=== PATIENT | female | born 1945 | race Caucasian/White ===

== ENCOUNTER → 2017-06-27 | Outpatient (CLI) | payer MEDICARE, OTHER | LOC: MC.RAD 13:20 | DX: Z12.31 Encounter for screening mammogram for malignant neoplasm of breast (principal) ==

== ENCOUNTER → 2018-10-17 | Outpatient (CLI) | payer MEDICARE, OTHER | LOC: MC.RAD 10:15 | DX: Z12.31 Encounter for screening mammogram for malignant neoplasm of breast (principal) ==

== ENCOUNTER → 2019-02-23 | Outpatient (CLI) | payer MEDICARE, OTHER | LOC: COL.RAD 11:10 | DX: C83.11 Mantle cell lymphoma, lymph nodes of head, face, and neck (principal); R06.02 Shortness of breath | CPT/HCPCS: Q9967 ==

== ENCOUNTER 2020-03-15 08:38 | Outpatient (CLI) | payer MEDICARE, OTHER ==
[~2020-03-15] VITALS: Ht 160 cm; Wt 56.0 kg
[2020-03-15] VITALS (18 sets, daily range): BP systolic 144–177; BP diastolic 60–90; PULSE 58–80; TEMP 98.3
[~2020-03-15 08:38] MED LIST: CALCIUM 600 MG1 EAC2 PO; HCTZ12.5TAB PO; INDERAL 10MG10 MG PO; MULTIPLE VITAMI1 TA5 PO; VITAMIN B12 1541 TAB PO; ZESTRIL 5MG5 MG PO
--- NOTE | 2020-03-15 09:13 | NUR ---
HOUSE NOTIFIED OF NEED FOR BED POSSIBILITY
--- NOTE | 2020-03-15 09:50 | NUR ---
PT STARTED COUGHING UP BLOOD. 02 @ L REMAINS. RESOLVING AFTER 5 MIN. PT TAKEN TO EU9. CXR 1 HOUR
--- NOTE | 2020-03-15 12:22 | NUR ---
Spoke with Radha Calderon stated ok for discharge. Wants patient to take it easy for next 2-3 days.
--- NOTE | 2020-03-15 12:56 | NUR ---
PATIENT VSS NO PAIN OR SHORTNESS OF BREATH NOTED. BIOPSY SITE CLEAN AND DRY. IV REMOVED. LUNGS CLEAR AND HEART SOUNDS REGULAR. GAVE PATIENT SOME WATER NO PROBLEMS WITH DRINKING. ESCORTED VIA WHEELCHAIR TO PRIVATE VEHICLE
== END 2020-03-15 13:29 | disposition home or self-care (01) ==
LOC: COL.RAD 08:38
DX: C85.90 Non-Hodgkin lymphoma, unspecified, unspecified site (principal); R91.8 Other nonspecific abnormal finding of lung field

== ENCOUNTER 2022-11-05 08:05 | Outpatient (CLI) | payer MEDICARE, OTHER ==
[~2022-11-05] VITALS: Ht 160 cm; Wt 48.1 kg
[2022-11-05 08:40] VITALS: BP 149/69; PULSE 73; TEMP 98
[2022-11-05 08:51] VITALS: BP 149/69; PULSE 73; TEMP 98
[2022-11-05] MEDS ORDERED: NORVASC 5MG5 MG/TAB PO (08:55)
[2022-11-05] MEDS ORDERED: K-TAB10 PO (08:56)
[2022-11-05] MEDS ORDERED: METHYLCOBAL10000 MCG SL (09:00)
--- NOTE | 2022-11-05 09:01 | NUR ---
0816-PT ARRIVED TO [facility] [place]BULATION, SPOUSE STAYING IN WAITING ROOM. PATIENT ALERT AND ORIENTED, ALLERGIES AND HISTORY REVIEWED. CONSENTS SIGNED AND VERIFIRED, QUESTIONS INVITED. VITAL SIGNS TAKEN. VSS. PATIENT CHANGED INTO GOWN, WARM BLANKET PROVIDED. IV STARTED TO RW PER Flakita PALOMINO RN. CALL LIGHT WITHIN REACH
[2022-11-05 10:17] VITALS: BP 125/60; PULSE 80; TEMP 98.2
--- NOTE | 2022-11-05 10:17 | NUR ---
PATIENT RETURNED TO ROOM 6 VIA CART, ALERT AND ORIENTED X3. NURSE HANDOFF COMPLETED IN ROOM. BREATHING REGULAR AND UNLABORED. SKIN WARM AND DRY. NO COMPLAINTS OF PAIN OR NAUSEA. PATIENT HAD WATER, DENIES FOOD. CALL LIGHT IN REACH. SEE CHART FOR VITAL SIGNS. [facility]OU[facility], [facility], IN ROOM.
[2022-11-05 10:31] VITALS: BP 148/71; PULSE 71
[2022-11-05 10:45] VITALS: BP 151/63; PULSE 69
--- NOTE | 2022-11-05 11:12 | NUR ---
DISCHARGE TEACHING COMPLETED WITH PRINTED EDUCATION AND INSTRUCTIONS SENT HOME WITH PATIENT. NO COMPLAINTS OF PAIN OR NAUSEA. IV REMOVED. GAUZE AND COBAN PLACED OVER SITE. PATIENT AMBULATED TO RESTROOM WITH STEADY GAIT AND VOIDED. DISCHARGED HOME WITH [facility].
[2022-11-05 11:26] VITALS: BP 104/53; PULSE 64
[2022-11-05 14:12] LABS: BASO % 0.7 % (0.0-2.0); EOS % 0.5 % (0.0-4.0); GRAN # 4.4 K/mm3 (1.4-6.5); GRAN % 75.8 % (42.2-75.2); HEMOGLOBIN 10.2 g/dl (12.5-16.0); LYMPH # 0.8 K/mm3 (1.2-3.4); LYMPH % 14.4 % (20.0-51.0); MEAN CELL VOLUME 87 fl (80.0-100.0); MEAN CORPUSCULAR HEMOGLOBIN 29 pg (27-31); MEAN CORPUSCULAR HGB CONC 34 g/dl (33.0-37.0); MEAN PLATELET VOLUME 10.3 fl (7.4-10.4); MONO # 0.5 K/mm3 (0.1-0.6); MONO % 8.4 % (1.7-9.3); PLATELET COUNT 174 K/mm3 (130-400); RED BLOOD COUNT 3.48 M/mm3 (4.10-5.30); REDCELL DISTRIBUTION WIDTH-CV 12.5 % (11.5-14.5)
[2022-11-05 14:14] LABS: HEMATOCRIT 30.3 % (37.0-47.0)
== END 2022-11-05 11:12 | disposition home or self-care (01) ==
LOC: SDCO 08:05
PROVIDERS: Pathology Anatomic Pathology & Clinical Pathology
DX: C83.11 Mantle cell lymphoma, lymph nodes of head, face, and neck (principal); D75.9 Disease of blood and blood-forming organs, unspecified; L92.8 Other granulomatous disorders of the skin and subcutaneous tissue
CPT/HCPCS: J2704; J7120

== ENCOUNTER → 2023-03-13 | Outpatient (CLI) | payer MEDICARE, OTHER ==
[~2023-03-13] MED LIST changes: +K-TAB10 PO; +METHYLCOBAL10000 MCG SL; +NORVASC 5MG5 MG/TAB PO
== END ==
LOC: MC.RAD 10:13
DX: Z12.31 Encounter for screening mammogram for malignant neoplasm of breast (principal)